=== PATIENT | male | born 1950 | race Caucasian/White ===

== ENCOUNTER 2022-10-02 08:18 | Emergency (ER) | payer MEDICARE, OTHER ==
[~2022-10-02] VITALS: Ht 177.8 cm; Wt 120.2 kg
[2022-10-02] MEDS ORDERED: ELIQUIS5 MG PO (13:16)
[2022-10-02] MEDS ORDERED: ENALAPRIL MALEA20 MG PO (13:16)
[2022-10-02] MEDS ORDERED: ADVAIR 250-501 EACH INH (13:17)
[2022-10-02] MEDS ORDERED: METOPROLOL SUC100 MG PO (13:17)
[2022-10-02] MEDS ORDERED: SPIRONOLACTONE25 MG PO (13:17)
[2022-10-02] MEDS ORDERED: LASIX40 MG PO (13:17)
[2022-10-02] MEDS ORDERED: TART CHERRY CA1 EACH PO (13:18)
[2022-10-02 14:24] VITALS: BP 119/83
--- NOTE | 2022-10-03 07:34 | EKG ---
[facility] [address] [place] [address] Signed Atrial fibrillation Abnormal ECG No previous ECGs available Confirmed by SLICK JONES MD ([id number]) on 10/03/2022 7:34:04 AM Electronically Signed By: SLICK JONES MD 10/03/22 0734 PATIENT NAME: MAGDALENABARAK SR Electrocardiogram DATE OF : 50 PHYSICIAN: SLICK JONES MD REPORT #: [id number] REPORT IS CONFIDENTIAL AND NOT TO BE RELEASED WITHOUT AUTHORIZATION
== END 2022-10-02 14:10 | disposition home or self-care (01) ==
LOC: ED 08:18
DX: G45.9 Transient cerebral ischemic attack, unspecified (principal); I48.91 Unspecified atrial fibrillation; Z79.01 Long term (current) use of anticoagulants; Z88.0 Allergy status to penicillin; Z88.1 Allergy status to other antibiotic agents; Z88.5 Allergy status to narcotic agent; Z79.899 Other long term (current) drug therapy; Z20.822 Contact with and (suspected) exposure to COVID-19
CPT/HCPCS: 36415; 70450; 70496; 70498; 70551; 71045; 80053; 85025; 85610; 85730; 87502; 93005; 93010; 99285-25; C9803; Q9967; U0003

== ENCOUNTER 2024-03-30 08:41 | Emergency (ER) | payer MEDICARE, OTHER ==
[~2024-03-30] VITALS: Ht 177.8 cm; Wt 118.0 kg
[~2024-03-30 08:41] MED LIST: ADVAIR 250-501 EACH INH; ELIQUIS5 MG PO; ENALAPRIL MALEA20 MG PO; LASIX40 MG PO; MECLIZINE HCL25 MG PO; METOPROLOL SUC100 MG PO; SPIRONOLACTONE25 MG PO; TART CHERRY CA1 EACH PO
[2024-03-30] MEDS ORDERED: METOPROLOL SUCC50 MG PO (08:52)
[2024-03-30 09:47] VITALS: BP 139/100
== END 2024-03-30 09:47 | disposition home or self-care (01) ==
LOC: ED 08:41
DX: S84.91XA Injury of unspecified nerve at lower leg level, right leg, initial encounter (principal); I10 Essential (primary) hypertension; Z88.0 Allergy status to penicillin; Z88.5 Allergy status to narcotic agent; Z88.8 Allergy status to other drugs, medicaments and biological substances; Z79.899 Other long term (current) drug therapy; Z79.01 Long term (current) use of anticoagulants; Z96.651 Presence of right artificial knee joint; W55.12XA Struck by horse, initial encounter
CPT/HCPCS: 72100; 73552; 99283